=== PATIENT | female | born 1945 | race Two or more races ===

== ENCOUNTER 2024-02-18 23:06 | Inpatient (IN) | payer MEDICARE, OTHER ==
[~2024-02-18] VITALS: Ht 167.6 cm; Wt 50.8 kg
[2024-02-19] VITALS: BP 156/77; TEMP 98.1; O2SAT 98
[2024-02-19] MEDS ORDERED: ACETAMINOPHEN 325 MG TABLET PO PRN
[2024-02-19] MEDS ORDERED: ONDANSETRON HCL/PF 4 MG/2 ML VIAL IVP PRN
[2024-02-19] MEDS ORDERED: Z GUARD REMEDY 4 OZ OINT TP PRN
[2024-02-19 04:00] VITALS: BP_SYST 155; BP_SYST 162; BP_DIAS 67; BP_DIAS 70; TEMP 98; O2SAT 100
[2024-02-19 07:02] LABS: BASOPHILS % (AUTO) 0.7 % (0.0-2.0); EOSINOPHILS % (AUTO) 1.5 % (0.0-6.0); HEMATOCRIT 33 % (33-45); HEMOGLOBIN 11.5 g/dL (11.5-14.8); LYMPHOCYTES # (AUTO) 0.8 K/uL (0.8-4.8); LYMPHOCYTES % (AUTO) 33.7 % (20.0-44.0); MEAN CORPUSCULAR HEMOGLOBIN 35 PG (26.0-33.0); MEAN CORPUSCULAR HGB CONC 34 g/dl (31.0-36.0); MEAN CORPUSCULAR VOLUME 101 fL (82-100); MONOCYTES # (AUTO) 0.3 K/uL (0.1-1.30); MONOCYTES % (AUTO) 11.9 % (2.0-12.0); NEUTROPHILS # (AUTO) 1.2 K/uL (1.8-8.9); NEUTROPHILS % (AUTO) 52.2 % (43.0-81.0); PLATELET COUNT (AUTO) 224 K/uL (150-450); RED BLOOD CELL COUNT(AUTO) 3.32 MIL/uL (4.0-5.2); RED CELL DISTRIBUTION WIDTH 13.4 % (11.5-15.0); WHITE BLOOD COUNT (AUTO) 2.3 K/uL (4.3-11.0)
[2024-02-19 07:33] LABS: ALBUMIN 3.4 g/dL (3.4-5.0); CALCIUM, SERUM 8.8 mg/dL (8.5-10.1); CREATININE 0.6 mg/dL (0.6-1.3); MAGNESIUM 2.3 mg/dL (1.8-2.4); PHOSPHORUS 2.5 mg/dL (2.5-4.9); POTASSIUM 3.2 mmol/L (3.5-5.1)
[2024-02-19] MEDS: PANTOPRAZOLE 40 MG TABLET.DR PO SCH (08:01)
[2024-02-19 08:30] VITALS: BP 176/89; TEMP 99; O2SAT 94
[2024-02-19] MEDS: CEFTRIAXONE 1 G in IV D5W 50 ML IV SCH (08:35)
[2024-02-19] MEDS: hydrALAZINE HCL IV 20 MG VIAL IV PRN (08:37)
[2024-02-19] MEDS ORDERED: POTASSIUM CHLORIDE 20 MEQ TAB.PRT.SR PO SCH (10:00)
[2024-02-19] MEDS: POTASSIUM CHLORIDE 20 MEQ POWDER PACKET PO SCH (10:07)
[2024-02-19] MEDS ORDERED: CELE200C PO (10:32)
[2024-02-19] MEDS ORDERED: HYDR-4303 PO (10:32)
[2024-02-19] MEDS ORDERED: CYAN-51 PO (10:32)
[2024-02-19] MEDS ORDERED: LEVO50TA8 PO (10:32)
[2024-02-19] MEDS ORDERED: ALPR0.5T8 PO (10:32)
[2024-02-19] MEDS ORDERED: ZOLP10TA2 PO (10:32)
[2024-02-19] MEDS ORDERED: OMEG-130 PO (10:32)
[2024-02-19] MEDS ORDERED: DOCU100C36 PO (10:32)
[2024-02-19 10:40] LABS: THYROID STIMULATING HORMONE 2.13 uIU/mL (0.358-3.74)
[2024-02-19 12:10] LABS: BILIRUBIN,TOTAL 0.4 mg/dL (0.2-1.0); TOTAL PROTEIN, SERUM 7.3 g/dL (6.4-8.2)
[2024-02-19] MEDS: CELECOXIB 100 MG CAPSULE PO SCH (12:33)
[2024-02-19 12:40] LABS: ALBUMIN 3.4 g/dL (3.4-5.0); BILIRUBIN,DIRECT 0.1 mg/dL (0.0-0.2)
[2024-02-19 13:30] VITALS: BP 144/66; TEMP 98.9; O2SAT 99
[2024-02-19 16:00] VITALS: BP_SYST 141; BP_SYST 144; BP_DIAS 66; BP_DIAS 95; TEMP 98.8; TEMP 98.9; O2SAT 95; O2SAT 99
[2024-02-19] MEDS: ARGININE/GLUTAMINE/CALCIUM BMB 1 EACH POWD.PACK PO SCH (16:56)
[2024-02-19 19:59] LABS: APPEARANCE,URINE CLOUDY (CLEAR); BILIRUBIN,URINE NEGATIVE (NEGATIVE); BLOOD, URINE 1+ Ery/uL (NEGATIVE); COLOR,URINE YELLOW (YELLOW); KETONES,URINE NEGATIVE (NEGATIVE); LEUKOCYTE ESTERASE ,URINE 2+ (NEGATIVE); NITRITE, URINE POSITIVE (NEGATIVE); PH,URINE 6.5 (5.0-8.0); PROTEIN,URINE TRACE mg/dl (NEGATIVE); UGLUCOSE NEGATIVE (NEGATIVE)
[2024-02-19 20:00] VITALS: BP 151/81; TEMP 97.9; O2SAT 97
[2024-02-19 20:10] LABS: ADD URINE CULTURE YES; BACTERIA,URINE 3+ /HPF (None Seen); WBC,URINE 21-50 /HPF (0-3)
[2024-02-20 04:00] VITALS: BP 147/72; TEMP 98.4; O2SAT 98
[2024-02-20 06:10] LABS: BASOPHILS % (AUTO) 0.7 % (0.0-2.0); EOSINOPHILS % (AUTO) 1.8 % (0.0-6.0); HEMATOCRIT 33 % (33-45); HEMOGLOBIN 11.3 g/dL (11.5-14.8); LYMPHOCYTES # (AUTO) 0.9 K/uL (0.8-4.8); LYMPHOCYTES % (AUTO) 40.3 % (20.0-44.0); MEAN CORPUSCULAR HEMOGLOBIN 34 PG (26.0-33.0); MEAN CORPUSCULAR HGB CONC 34 g/dl (31.0-36.0); MEAN CORPUSCULAR VOLUME 101 fL (82-100); MONOCYTES # (AUTO) 0.4 K/uL (0.1-1.30); MONOCYTES % (AUTO) 15.8 % (2.0-12.0); NEUTROPHILS # (AUTO) 0.9 K/uL (1.8-8.9); NEUTROPHILS % (AUTO) 41.4 % (43.0-81.0); PLATELET COUNT (AUTO) 230 K/uL (150-450); RED BLOOD CELL COUNT(AUTO) 3.29 MIL/uL (4.0-5.2); RED CELL DISTRIBUTION WIDTH 13.3 % (11.5-15.0); WHITE BLOOD COUNT (AUTO) 2.3 K/uL (4.3-11.0)
[2024-02-20 07:19] LABS: CALCIUM, SERUM 8.9 mg/dL (8.5-10.1); CREATININE 0.6 mg/dL (0.6-1.3); POTASSIUM 3.8 mmol/L (3.5-5.1)
[2024-02-20] MEDS: LEVOTHYROXINE SODIUM 50 MCG TABLET PO SCH (07:45)
[2024-02-20 08:00] VITALS: BP 156/73; TEMP 98.1; O2SAT 100
[2024-02-20] MEDS: DOCUSATE SODIUM 100 MG CAPSULE PO SCH (09:07)
[2024-02-20] MEDS: CYANOCOBALAMIN 500 MCG TABLET PO SCH (09:07)
[2024-02-20 09:14] LABS: MAGNESIUM 2.4 mg/dL (1.8-2.4); PHOSPHORUS 2.9 mg/dL (2.5-4.9)
[2024-02-20 16:00] VITALS: BP 144/74; TEMP 97.9; O2SAT 98
[2024-02-20 20:00] VITALS: BP 137/70; TEMP 98.4; O2SAT 96
[2024-02-20 20:49] VITALS: BP 137/70; TEMP 98.4; O2SAT 96
[2024-02-21] VITALS (7 sets, daily range): BP systolic 118–154; BP diastolic 65–78; TEMP 97.7–98.1; O2SAT 98–100
[2024-02-22] VITALS: BP 125/72; TEMP 97.9; O2SAT 98
[2024-02-22 04:00] VITALS: BP 148/91; TEMP 97.8; O2SAT 99
[2024-02-22 08:00] VITALS: BP 133/66; TEMP 98.2; O2SAT 99
[2024-02-22 16:00] VITALS: BP 127/79; TEMP 98.1; O2SAT 99
[2024-02-22 20:00] VITALS: BP 120/72; TEMP 98.6; O2SAT 97
[2024-02-22 20:48] VITALS: BP 123/69; TEMP 98; O2SAT 98
[2024-02-23 08:00] VITALS: BP 125/65; TEMP 97.7; O2SAT 100
[2024-02-23] MEDS: THERAHONEY GEL 1.5 OZ TUBE TP SCH (08:45)
== END 2024-02-23 14:00 | DRG 689 ==
LOC: TELE 23:06 → MED 02-19 11:27 → TELE 02-20 00:21 → MED 02-22 10:12
PROVIDERS: ADMIT Nurse Practitioner Family; ATTEND Internal Medicine
DX: N39.0 Urinary tract infection, site not specified (principal); G93.41 Metabolic encephalopathy; L89.623 Pressure ulcer of left heel, stage 3; D68.59 Other primary thrombophilia; F03.94 Unspecified dementia, unspecified severity, with anxiety; E03.9 Hypothyroidism, unspecified; M19.90 Unspecified osteoarthritis, unspecified site; R53.1 Weakness; B95.2 Enterococcus as the cause of diseases classified elsewhere; R93.5 Abnormal findings on diagnostic imaging of other abdominal regions, including retroperitoneum; F41.9 Anxiety disorder, unspecified
CPT/HCPCS: 36415; 70450-TC; 73700-TC; 80048-TC; 80061-TC; 80076-TC; 81001; 82040-TC; 82140-TC; 83735-TC; 84100-TC; 84443-TC; 85025-TC; 87081-TC; 87086-TC; 97110-TC; 97116-TC; 97530-TC; 97535-TC; A4223; G0378; J0360; J0696; J7030; J7050; J7060